=== PATIENT | female | born 1955 | race Caucasian/White ===

== ENCOUNTER 2022-01-09 20:39 | Emergency (ER) | payer MEDICARE ==
[~2022-01-09] VITALS: Ht 162.6 cm; Wt 88.5 kg
[2022-01-10] MEDS ORDERED: ACETAMINOPHEN 325 MG TAB PO ONE (01:45)
== END 2022-01-10 02:16 | disposition home or self-care (01) ==
LOC: FSED 20:48
DX: R07.89 Other chest pain (principal); R03.0 Elevated blood-pressure reading, without diagnosis of hypertension; R51.9 Headache, unspecified; E11.40 Type 2 diabetes mellitus with diabetic neuropathy, unspecified; I12.9 Hypertensive chronic kidney disease with stage 1 through stage 4 chronic kidney disease, or unspecified chronic kidney disease; E11.22 Type 2 diabetes mellitus with diabetic chronic kidney disease; N18.9 Chronic kidney disease, unspecified; Z95.5 Presence of coronary angioplasty implant and graft; Z85.818 Personal history of malignant neoplasm of other sites of lip, oral cavity, and pharynx; I25.10 Atherosclerotic heart disease of native coronary artery without angina pectoris
CPT/HCPCS: 71046; 80053; 81003; 82553; 84484; 85025; 93005; 99283

== ENCOUNTER 2024-12-30 09:44 | Emergency (ER) | payer MEDICARE ==
[~2024-12-30] VITALS: Ht 160 cm; Wt 96.2 kg
[2024-12-30 10:09] VITALS: PULSE 65; RESP 17; TEMP 98.3
[2024-12-30] MEDS: HYDROCODONE/APAP 5MG-325MG TAB PO ONE (10:46)
[2024-12-30 13:15] VITALS: BP 167/87; PULSE 82; RESP 16; TEMP 98.1; O2SAT 100
[2024-12-30] MEDS: DEXAMETHASONE SOD PHOS 10 MG/1 ML VIAL IM ONE (13:15)
== END 2024-12-30 13:16 | disposition home or self-care (01) ==
LOC: ER 10:12
DX: M25.562 Pain in left knee (principal); I12.9 Hypertensive chronic kidney disease with stage 1 through stage 4 chronic kidney disease, or unspecified chronic kidney disease; E11.22 Type 2 diabetes mellitus with diabetic chronic kidney disease; N18.9 Chronic kidney disease, unspecified
CPT/HCPCS: 73562; 93971; 99283; J1100